=== PATIENT | female | born 1975 | race American Indian/Alaskan Native ===

== ENCOUNTER 2019-05-05 11:35 | Emergency (ER) | payer SELFPAY ==
[2019-05-05 15:34] VITALS: BP 140/90
== END 2019-05-05 17:05 | disposition home or self-care (01) ==
LOC: ED 11:35
DX: S52.602A Unspecified fracture of lower end of left ulna, initial encounter for closed fracture (principal); Z79.899 Other long term (current) drug therapy; W22.8XXA Striking against or struck by other objects, initial encounter; Y93.89 Activity, other specified; Y92.89 Other specified places as the place of occurrence of the external cause; Y99.8 Other external cause status